=== PATIENT | female | born 1960 | race Caucasian/White ===

== ENCOUNTER 2022-07-11 13:37 | Outpatient (CLI) | payer OTHER, SELFPAY ==
[2022-07-11 13:37] LABS: Albumin* 4.5 g/dL (3.3-5.0)
[2022-07-11 13:40] LABS: Alkaline Phosphatase* 86 U/L (40-150); Aspartate Amino Transferase* 35 U/L (12-35); Bilirubin Direct* 0.2 mg/dL (0.0-0.5); Bilirubin Total* 0.8 mg/dL (0.1-1.5); Cholesterol* 189 mg/dL (90-199); HDL Cholesterol* 52 mg/dL (>=50); LDL Cholesterol Calculated 125 mg/dL (<100); Total Protein* 7.5 g/dL (6.0-8.3); Triglycerides* 62 mg/dL (40-149)
[2022-07-11 13:41] LABS: Alanine Aminotransferase* 18 U/L (4-35)
== END 2022-07-11 13:38 | disposition home or self-care (01) ==
PROVIDERS: PCP Physician Assistant Medical; Visit Provider Physician Assistant Medical
DX: E78.5 Hyperlipidemia, unspecified (principal)
CPT/HCPCS: 80061; 80076

== ENCOUNTER 2022-10-18 08:40 | Outpatient (CLI) | payer OTHER, SELFPAY ==
[2022-10-18 14:25] LABS: Albumin* 4.3 g/dL (3.3-5.0)
[2022-10-18 14:27] LABS: Cholesterol* 175 mg/dL (90-199)
[2022-10-18 14:28] LABS: Alanine Aminotransferase* 16 U/L (4-35); Alkaline Phosphatase* 73 U/L (40-150); Aspartate Amino Transferase* 25 U/L (12-35); Bilirubin Direct* 0.3 mg/dL (0.0-0.5); Bilirubin Total* 0.5 mg/dL (0.1-1.5); HDL Cholesterol* 51 mg/dL (>=50); LDL Cholesterol Calculated 107 mg/dL (<100); Total Protein* 7.1 g/dL (6.0-8.3); Triglycerides* 85 mg/dL (40-149)
== END 2022-10-18 08:41 | disposition home or self-care (01) ==
LOC: LKVREF 08:41
PROVIDERS: PCP Physician Assistant Medical; Visit Provider Physician Assistant Medical
DX: E78.5 Hyperlipidemia, unspecified (principal)
CPT/HCPCS: 80061; 80076

== ENCOUNTER 2023-02-20 08:58 | Outpatient (CLI) | payer OTHER, SELFPAY | END 2023-02-20 08:59 | disposition home or self-care (01) | PROVIDERS: PCP Physician Assistant Medical; Visit Provider Physician Assistant Medical | DX: Z00.00 Encounter for general adult medical examination without abnormal findings (principal); E78.5 Hyperlipidemia, unspecified; D68.51 Activated protein C resistance | CPT/HCPCS: 80053; 80061 ==

== ENCOUNTER 2023-11-18 10:35 | Outpatient (CLI) | payer OTHER, SELFPAY | END 2023-11-18 10:36 | disposition home or self-care (01) | PROVIDERS: PCP Physician Assistant Medical; Visit Provider Family Medicine | DX: R79.89 Other specified abnormal findings of blood chemistry (principal); R00.0 Tachycardia, unspecified | CPT/HCPCS: 80076; 83690; 86140 ==

== ENCOUNTER 2023-11-19 14:56 | Outpatient (CLI) | payer OTHER, SELFPAY ==
--- NOTE | 2023-11-19 15:00 | CRLHL7_ITS ---
For Patients: As a result of the Cures Act, medical imaging exams and procedure reports are released immediately into your electronic medical record. You may view this report before your referring provider. If you have questions, please contact your health care provider. Indication: Unspecified cough Technique: Post contrast CT chest. 75 cc Isovue 370 intravenous contrast. Please note that all CT scans at this facility use dose modulation, iterative reconstruction, and/or weight-based dosing when appropriate to reduce radiation dose to as low as reasonably achievable. Comparison: Chest x-ray 11/03/2023 Findings: Dependent areas of atelectasis/scarring noted bilaterally. No pleural effusion. No air bronchograms. No pulmonary edema. Airways are clear. No adenopathy. Breast tissue is normal. No thyroid lesion. No fracture. IVC filter. Gallbladder absent. Impression: Mild dependent areas of atelectasis/scarring in both lower lobes. No bronchiectasis. No pulmonary edema or infiltrate. Please note that all CT scans at this facility use dose modulation, iterative reconstruction, and/or weight-based dosing when appropriate to reduce radiation dose to as low as reasonably achievable. Dictated by Espinoza Garcia MD @ 11/20/2023 9:09:56 AM (Electronically Signed)
[2023-11-19 15:39] LABS: Creatinine* 0.8 mg/dL (0.5-1.5); Estimated Glomerular Filt Rate 84 ml/min
== END 2023-11-19 14:57 | disposition home or self-care (01) ==
LOC: CT 14:58
PROVIDERS: PCP Physician Assistant Medical; Visit Provider Family Medicine
DX: R05.9 Cough, unspecified (principal); J98.11 Atelectasis
CPT/HCPCS: 36415; 71260; 82565; Q9967

== ENCOUNTER 2024-06-22 08:27 | Outpatient (CLI) | payer OTHER, SELFPAY | END 2024-06-22 08:28 | disposition home or self-care (01) | LOC: NFLDREF 06-23 05:47 | PROVIDERS: PCP Physician Assistant Medical; Referring Provider Physician Assistant Medical; Visit Provider Physician Assistant Medical | DX: E78.5 Hyperlipidemia, unspecified (principal); Z13.228 Encounter for screening for other metabolic disorders | CPT/HCPCS: 80053; 80061 ==

== ENCOUNTER 2024-09-22 14:34 | Outpatient (CLI) | payer OTHER, SELFPAY ==
--- NOTE | 2024-09-22 14:40 | CRLHL7_ITS ---
For Patients: As a result of the Century Cures Act, medical imaging exams and procedure reports are released immediately into your electronic medical record. You may view this report before your referring provider. If you have questions, please contact your health care provider. BILATERAL SCREENING MAMMOGRAM WITH COMPUTER-AIDED DETECTION AND TOMOSYNTHESIS TECHNIQUE: CC and MLO views were obtained. These mammographic images have been obtained using full-field digital technique. These mammographic images were interpreted with the benefit of computer-aided detection. Breast Tomosynthesis was used in this interpretation. COMPARISON FILM: 02/20/21. FINDINGS: The breasts are heterogeneously dense, which may obscure small masses. IMPRESSION: There is no radiographic evidence for malignancy. ASSESSMENT: BI-RADS Category 2: Benign RECOMMENDATION: Routine screening mammogram in 1 year. A lay language report of this examination will be provided to the patient. Espinoza Garcia M.D. Diagnostic Radiologist [email or web address] SP/Dictated by: Espinoza Garcia MD @ 09/27/2024 12:32:00 PM (Electronically Signed)
== END 2024-09-22 14:35 | disposition home or self-care (01) ==
PROVIDERS: PCP Physician Assistant Medical; Visit Provider Physician Assistant Medical
DX: Z12.31 Encounter for screening mammogram for malignant neoplasm of breast (principal); R92.333 Mammographic heterogeneous density, bilateral breasts
CPT/HCPCS: 77063; 77067

== ENCOUNTER 2024-09-30 09:41 | Outpatient (CLI) | payer OTHER, SELFPAY | END 2024-09-30 09:42 | disposition home or self-care (01) | LOC: NFLDREF 10-01 08:37 | PROVIDERS: PCP Physician Assistant Medical; Referring Provider Physician Assistant Medical; Visit Provider Physician Assistant Medical | DX: E78.5 Hyperlipidemia, unspecified (principal) | CPT/HCPCS: 80061 ==

== ENCOUNTER 2025-03-01 08:49 | Outpatient (CLI) | payer OTHER, SELFPAY | END 2025-03-01 08:50 | disposition home or self-care (01) | LOC: NFLDREF 03-08 23:31 | PROVIDERS: PCP Physician Assistant Medical; Referring Provider Physician Assistant Medical; Visit Provider Physician Assistant Medical | DX: E78.5 Hyperlipidemia, unspecified (principal) | CPT/HCPCS: 80061; 80076 ==

== ENCOUNTER 2025-08-08 09:48 | Outpatient (CLI) | payer OTHER, SELFPAY | END 2025-08-08 09:49 | disposition home or self-care (01) | LOC: NFLDREF 08-10 10:28 | PROVIDERS: PCP Physician Assistant Medical; Referring Provider Physician Assistant Medical; Visit Provider Physician Assistant Medical | DX: R79.89 Other specified abnormal findings of blood chemistry (principal) | CPT/HCPCS: 80076; 82977; 83690; 86703; 86704; 86706; 86803; 87340 ==

== ENCOUNTER 2025-09-27 15:55 | Outpatient (CLI) | payer OTHER, SELFPAY ==
--- NOTE | 2025-09-27 16:00 | CRLHL7_ITS ---
For Patients: As a result of the Century Cures Act, medical imaging exams and procedure reports are released immediately into your electronic medical record. You may view this report before your referring provider. If you have questions, please contact your health care provider. INDICATION: BILATERAL SCREENING MAMMOGRAM, ASYMPTOMATIC 65 Y/O FEMALE COMPARISON: 09/22/2024, 02/20/2021 TECHNIQUE: Digital mammogram in CC and MLO projections including computer-aided detection (CAD) and tomosynthesis. BREAST COMPOSITION: The breasts are heterogeneously dense, which may obscure small masses. FINDINGS: No suspicious findings. ASSESSMENT: BI-RADS 2 Benign RECOMMENDATION: Annual screening mammogram. A lay language report of this examination will be provided to the patient. Dictated by: Espinoza Garcia MD @ 09/28/2025 12:14:21 (Electronically Signed)
== END 2025-09-27 15:56 | disposition home or self-care (01) ==
LOC: MAMMO 15:55
PROVIDERS: PCP Physician Assistant Medical; Visit Provider Physician Assistant Medical
DX: Z12.31 Encounter for screening mammogram for malignant neoplasm of breast (principal); R92.333 Mammographic heterogeneous density, bilateral breasts
CPT/HCPCS: 77063; 77067